=== PATIENT | male | born 1985 | race Hispanic/Latino ===

== ENCOUNTER 2017-02-17 15:39 | Observation (INO) | payer MEDICAID ==
[2017-02-17 15:39] VITALS: BMI 18.8
--- NOTE | 2017-02-17 16:31 | ED PDOC ---
HPI: Skin/Bite Injury Time Seen by Provider: 02/17/17 16:02 Chief Complaint (Nursing): Abnormal Skin Integrity Chief Complaint (Provider): Right Arm Infection History Per: Patient History/Exam Limitations: no limitations Onset/Duration Of Symptoms: Days (x4) Current Symptoms Are (Timing): Still Present Location Of Injury: Right: Arm (extending from mid-upper arm to hand) Quality Of Symptoms: Painful, Swollen, Draining (abscess right ventral forearm) Additional Complaint(s): Aj Pena is a 31 year old male, with a past medical history inclusive of IV drug abuse, who presents to the ED on 02/17/17 for the evaluation of a right arm infection which he believes is stemming from a currently draining abscess on his ventral forearm. Patient reports that abscess, first noted 4 days ago, had initially been small with only localized redness, but that he had been told that it still needed to come to a head yesterday morning when he had presented to the [place] ED for evaluation. Abscess did spontaneously rupture over the course of that day, prompting patient to return to the [place] ED where he had been given IV antibiotics after "lots" of purulent discharge had been expressed from the wound. No Rx for PO antibiotics given prior to discharge home. Since that time area of erythema has spread, now extending from his mid-upper arm to his hand, and has been accompanied by a subjective fever, chills, diffuse myalgias and increased soreness/pain to the entirety of his RUE. Denies weakness /numbness. Tetanus vaccination is up to date. Of note, patient has experienced abscesses in this area before, last being as of 3.5 weeks ago within the right antecubital. Patient had been incarcerated at that time and I&D had been performed without complications. PMD: none Past Medical History Reviewed: Historical Data, Nursing Documentation, Vital Signs Vital Signs: Last Vital Signs Temp 99.1 F 02/17/17 15:53 Pulse 121 H 02/17/17 15:53 Resp 16 02/17/17 15:53 BP 119/80 02/17/17 15:53 Pulse Ox 99 02/17/17 17:19 - Medical History PMH: No Chronic Diseases Denies: Depression - Surgical History Surgical History: No Surg Hx - Family History Family History: States: Diabetes - Social History Current smoker - smoking cessation education provided: Yes Alcohol: Social Drugs: Cocaine, Opiates (IV drug abuser) - Immunization History Hx Tetanus Toxoid Vaccination: No Hx Influenza Vaccination: No Hx Pneumococcal Vaccination: No - Allergies Allergies/Adverse Reactions: Allergies Allergy/AdvReac Type Severity Reaction Status Date / Time Penicillins Allergy URTICARIA Verified 10/04/16 12:13 Review of Systems ROS Statement: Except As Marked, All Systems Reviewed And Found Negative Constitutional: Positive for: Fever (subjective), Chills Musculoskeletal: Positive for: Arm Pain (RUE (soreness/pain)), Other (diffuse myalgias) Neurological: Negative for: Weakness, Numbness Physical Exam - Reviewed Nursing Documentation Reviewed: Yes Vital Signs Reviewed: Yes - Physical Exam Appears: Positive for: In Acute Distress (mild painful) Head Exam: Positive for: ATRAUMATIC, NORMOCEPHALIC Skin: Positive for: Normal Color, Warm, Dry Cardiovascular/Chest: Positive for: Tachycardia (regular rhythm). Negative for : Murmur Respiratory: Positive for: Normal Breath Sounds. Negative for: Respiratory Distress Pulses-Radial (R): 2+ Extremity: Positive for: Normal ROM (FROM of right hand/fingers), Capillary Refill (<2 seconds), Swelling (erythema extending from right hand up to mid- upper arm with edema/induration/warmth of the entire forearm; no fluctuance), Other (2.5cm circular lesion noted to anterior mid-forearm, open with black central eschar and expressing purulent discharge) Neurologic/Psych: Positive for: Alert, Oriented, Mood/Affect (anxious). Negative for: Motor/Sensory Deficits (light touch intact of all nerve distributions of RUE, 5/5 strength) - Laboratory Results Result Diagrams: 02/17/17 16:33 02/17/17 16:33 - ECG O2 Sat by Pulse Oximetry: 99 (RA) Pulse Ox Interpretation: Normal Medical Decision Making Medical Decision Makin:02 Initial Impression: abscess, cellulitis of RUE Patient will need hospitalization for rapid progression of cellulitis s/p spontaneous abscess drainage, concern for virulent bacteria (especially MRSA). Initial Plan: * Labs * Lactic Acid, Plasma * Blood Culture * Wound Culture * Levaquin 500mg IVPB * Vancomycin IVP * Toradol 15mg IVP * Reevaluation 16:45 Labs reviewed, elevated WBC count (15.0). Normal lactate. Discussed case with Dr. Mauro (Hospitalist), patient will be hospitalized overnight for both observation and further IV antibiotic administration. Plan has been discussed with patient, who is in agreement. Condition fair. Scribe Attestation: Documented by Maile Cortez, acting as a scribe for Kiley Brush MD. Provider Scribe Attestation: All medical record entries made by the Scribe were at my direction and personally dictated by me. I have reviewed the chart and agree that the record accurately reflects my personal performance of the history, physical exam, medical decision making, and the department course for this patient. I have also personally directed, reviewed, and agree with the discharge instructions and disposition. Disposition - Clinical Impression Clinical Impression: Cellulitis and abscess of upper arm and forearm - Patient ED Disposition Is Patient to be Admitted: Yes Counseled Patient/Family Regarding: Studies Performed, Diagnosis - Disposition Disposition Time: 16:45 Condition: FAIR - Pt Status Changed To: Hospital Disposition Of: Observation - POA Present On Arrival: None
[2017-02-17] MEDS ORDERED: Vancomycin 1 g Inj ONE (16:50)
[2017-02-17 17:01] LABS: BASO # 0.1 K/uL (0.0-0.2); BASO % 0.5 % (0.0-2.0); EOS # 0.2 K/uL (0.0-0.7); EOS % 1.4 % (0.0-4.0); HEMATOCRIT 34.9 % (35.0-51.0); LYMPH # 2.1 K/uL (1.0-4.3); MEAN CELL VOLUME 92.1 fl (80.0-94.0); MEAN CORPUSCULAR HEMOGLOBIN 28.6 pg (27.0-31.0); MEAN CORPUSCULAR HGB CONC 31.1 g/dL (33.0-37.0); MEAN PLATELET VOLUME 8.9 fl (7.2-11.7); MONO # 1.2 K/uL (0.0-0.8); MONO % 8.1 % (0.0-10.0); NEUT # 11.4 K/uL (1.8-7.0); RED CELL DISTRIBUTION WIDTH 16.3 % (11.5-14.5)
[2017-02-17 17:09] LABS: ALB/GLOB RATIO 1.1 (1.0-2.1); ALKALINE PHOSPHATASE 128 U/L (38-126); ALT/SGPT 147 U/L (21-72); AST/SGOT 85 U/L (17-59); BILIRUBIN,TOTAL 0.5 mg/dl (0.2-1.3); BLOOD UREA NITROGEN 16 mg/dl (9-20); CALCIUM 8.6 mg/dL (8.4-10.2); CARBON DIOXIDE 32 mmol/L (22-30); CHLORIDE 98 mmol/L (98-107); GFR AFRICAN-AMERICAN > 60; GLUCOSE,RANDOM 167 mg/dL (75-110); POTASSIUM 4.2 MMOL/L (3.6-5.0); SODIUM 137 mmol/l (132-148); TOTAL PROTEIN 6.6 G/DL (6.3-8.2)
--- NOTE | 2017-02-17 18:50 | RAD ---
HISTORY: admission COMPARISON: None available. TECHNIQUE: Chest PA and lateral FINDINGS: LUNGS: Right lateral chest wall/costophrenic angle excluded from view. No focal consolidation. Please note that chest x-ray has limited sensitivity for the detection of pulmonary masses. PLEURA: No significant pleural effusion identified. No definite pneumothorax . CARDIOVASCULAR: The cardiomediastinal silhouette appears within normal limits of size. OSSEOUS STRUCTURES: No acute osseous abnormality identified. VISUALIZED UPPER ABDOMEN: Unremarkable. OTHER FINDINGS: None. IMPRESSION: No focal consolidation, significant pleural effusion, or definite pneumothorax identified.
--- NOTE | 2017-02-17 19:00 | RAD ---
PROCEDURE: Radiographs of the right forearm. HISTORY: RIGHT arm infection h/o IVDA r/o FB COMPARISON: None available. TECHNIQUE: Frontal and lateral views obtained. FINDINGS: BONES: No acute displaced fracture. JOINT SPACES: No dislocation. OTHER FINDINGS: Subcutaneous bubbles of gas noted within the soft tissues, predominantly midforearm. No evidence of radiopaque foreign body. IMPRESSION: Subcutaneous bubbles of gas noted within the soft tissues, predominantly midforearm. Correlate clinically for cellulitis/ abscess or necrotizing fasciitis. No evidence of radiopaque foreign body. Findings discussed with Dr. Brush on 02/17/17 at 6:57 p.m.
--- NOTE | 2017-02-17 19:13 | CP.PCM.HP ---
History of Present Illness - History of Present Illness History of Present Illness: 31 year old male, with PMH of IVDA drug abuse came to ER with family for evaluation of right forearm infection . As per patient he noticed a small pimple on mid foraram lateral aspect, 4 days ago that became bigger in size with surrounding erythema and tenderness. Patient admits to injecting to antecubital area just above the wound 1 month ago and states that he did develop an abscess that was drained when he was in [facility] retirement He was seen in [place] ER yesterday and was treated with IV antibiotic and sent home without any Po antibiotics.During the night the abscess opened up and started draining large amount of purulent and faul smelling discharge. He noticed that erythema started to extend to his upper arm and down toward his hand with increased swelling and tenderness so decided to come to our ER for evaluation He also gives history of subjective fever, denies chills, nausea or vomiting. Allergies ; PCN PMH ; History IV drug abuse Medications; None Surgery : nOne Family history; none Social history ; just released from [facility] retirement , lives with ,IVETHAN ( uses heroine 80 bags/day and cocaine),smoker 1 ppd x 15 years, denies ETOH abuse ROS ; 14 point review of system negative except above Present on Admission - Present on Admission Any Indicators Present on Admission: No Review of Systems - Review of Systems All systems: reviewed and no additional remarkable complaints except Past Patient History - Infectious Disease Hx of Infectious Diseases: None - Tetanus Immunizations Tetanus Immunization: Unknown - Past Medical History & Family History Past Medical History?: No Past Family History: Reviewed and not pertinent - Past Social History Smoking Status: Heavy Smoker > 10 Cigarettes Daily Chewing Tobacco Use: No Cigar Use: No Alcohol: None Drugs: Cocaine, Other (heroine ) Home Situation {Lives}: With Family Domestic Violence: Negative - PSYCHIATRIC Hx Depression: No Hx Substance Use: Yes (heroin,on methadone treatment) - SURGICAL HISTORY Hx Surgeries: No Meds Allergies/Adverse Reactions: Allergies Allergy/AdvReac Type Severity Reaction Status Date / Time Penicillins Allergy URTICARIA Verified 10/04/16 12:13 Physical Exam - Constitutional Appears: Well, Non-toxic, No Acute Distress - Head Exam Head Exam: ATRAUMATIC, NORMAL INSPECTION, NORMOCEPHALIC - Eye Exam Eye Exam: EOMI, Normal appearance, PERRL Pupil Exam: NORMAL ACCOMODATION - ENT Exam ENT Exam: Mucous Membranes Moist, Normal Exam - Neck Exam Neck exam: Positive for: Full Rom, Normal Inspection - Respiratory Exam Respiratory Exam: Clear to Auscultation Bilateral, NORMAL BREATHING PATTERN. absent: Rales, Rhonchi, Wheezes - Cardiovascular Exam Cardiovascular Exam: REGULAR RHYTHM, RRR, +S1, +S2. absent: JVD - GI/Abdominal Exam GI & Abdominal Exam: Normal Bowel Sounds, Soft. absent: Distended, Guarding, Rebound, Tenderness - Rectal Exam Rectal Exam: Deferred - Extremities Exam Extremities exam: Positive for: normal capillary refill, normal inspection, pedal pulses present. Negative for: calf tenderness, pedal edema Additional comments: right mid forearam 2x 3 cm open wound with black escar and faul smelling purulent discharge erythema extending from mid upper arm to the hand with edema pulses inatact - Back Exam Back exam: NORMAL INSPECTION - Neurological Exam Neurological exam: Alert, CN II-XII Intact, Oriented x3, Reflexes Normal - Psychiatric Exam Psychiatric exam: Normal Affect, Normal Mood - Skin Skin Exam: Dry, Intact, Normal Color, Warm Results - Vital Signs Recent Vital Signs: Last Vital Signs Temp 99.1 F 02/17/17 15:53 Pulse 121 H 02/17/17 15:53 Resp 16 02/17/17 15:53 BP 119/80 02/17/17 15:53 Pulse Ox 99 02/17/17 17:19 - Labs Result Diagrams: 02/17/17 16:33 02/17/17 16:33 - Imaging and Cardiology forearm Xray Additional comment: Subcutaneous bubbles of gas noted within the soft tissues, predominantly midforearm. Correlate clinically for cellulitis/ abscess or necrotizing fasciitis. Assessment & Plan - Assessment and Plan (Free Text) Assessment: 31 year old male, with PMH of IVDA drug abuse came to ER with family for evaluation of right forearm infection . As per patient he noticed a small pimple on mid foraram lateral aspect, 4 days ago that became bigger in size with surrounding erythema and tenderness. Patient admits to injecting to antecubital area just above the wound 1 month ago and states that he did develop an abscess that was drained when he was in [facility] retirement He was seen in [place] ER yesterday and was treated with IV antibiotic and sent home without any Po antibiotics.During the night the abscess opened up and started draining large amount of purulent and faul smelling discharge. He noticed that erythema started to extend to his upper arm and down toward his hand with increased swelling and tenderness so decided to come to our ER for evaluation He also gives history of subjective fever, denies chills, nausea or vomiting. WBc elevated 15 K Tmax 99.1 1. Right Forearm abscess with cellulites in a IVDA patient Admit patient in med/surg Started levaquine and Vanco IV Wound cx, blood cx Will call ID consult and surgery for possible I& D pain management 2.h/o IVDA uses heroine ( 80 bags / day and cocaine ) has been incarcerated recently and had detox Will need detox in community once cleraed for discharge 3. Tobacco abuse disorder Nicorine patch 4.Transaminitis unclear etiology Send Hepatitis profile Patient states that was checked 3 weeks ago for HIV and hep C status and was negative 5. DVt prophylaxis early ambulation
[2017-02-17 23:11] VITALS: BP 107/66; PULSE 93; RESP 17; TEMP 98.5; O2SAT 98
--- NOTE | 2017-02-18 07:44 | CARD ---
APPROVED REPORT EKG Measurement Heart [id number] CT [id number] <Conclusion> Sinus tachycardia Rightward axis Borderline ECG
--- NOTE | 2017-02-18 12:13 | CP.PCM.CON ---
<Bryn Dos Santos - Last Filed: 02/18/17 13:20> History of Present Illness - History of Present Illness History of Present Illness: 31M w/ PMHx of intravenous drug abuse presented to the ED w/ complaints of right forearm redness/abscess formation. Pt reports he first noticed a small pimple like structure on his mid-lateral portion of right forearm. Pt states area became bigger in size and region became erythematous and tender, patient mentioned it was painful making wrist movements. Reports that due to his IV drug use habits he has had this issue occur multiple times. Patient was seen in [place] ED, as per patient he was treated with IV abx and d/c w/o any oral abx. Currently abscess is spontaneously draining, as per nursing wound cultures were taken. At time of interview patient was being extremely demanding and rude to hospital staff. Patient threatening to leave AMA. Patient stated "I need my fix , I can't be here all day!". The wound area was purulent with a thin superficial region of necrotic tissue measuring approximately [id number] which was excised at bedside. Pus was irrigated with normal saline. Wound was debrided and cleaned off at bedside. Healthy pink based was exposed and packed. Wound area was dressed and is not c/d/i. After I&D was done patient stated he was not going to wait for any antibiotics and was threatening to sign out AMA. Benefits vs Risks were thoroughly explained to the patient and he responded "I know, I don't care, I'm not waiting for anything else, I'm gone". PMHx: as stated above Allergies: Penicillins PSurgHx:denies Review of Systems - Constitutional Constitutional: Fever Additional comments: subjective - Cardiovascular Cardiovascular: absent: Chest Pain, Chest Pain at Rest - Respiratory Respiratory: absent: Cough, Wheezing Additional comments: denies SOB - Gastrointestinal Gastrointestinal: absent: Abdominal Pain - Musculoskeletal Musculoskeletal: absent: Back Pain - Integumentary Integumentary: Wounds. absent: Jaundice Additional comments: Abscess spontaenously draining from right mid lateral forearm - Neurological Neurological: absent: Disequilibrium, Dizziness - Psychiatric Additional comments: Irritated Past Patient History - Infectious Disease Hx of Infectious Diseases: None - Tetanus Immunizations Tetanus Immunization: Unknown - Past Medical History & Family History Past Medical History?: No - Past Social History Smoking Status: Heavy Smoker > 10 Cigarettes Daily - HEMATOLOGICAL/ONCOLOGICAL Hx AIDS: No Hx Human Immunodeficiency Virus (HIV): No (HIV rapid drawn, nonreactive) - MUSCULOSKELETAL/RHEUMATOLOGICAL Hx Falls: No - PSYCHIATRIC Hx Depression: No Hx Substance Use: Yes (heroin,on methadone treatment) - SURGICAL HISTORY Hx Surgeries: No - ANESTHESIA Hx Anesthesia: No Hx Anesthesia Reactions: No Hx Malignant Hyperthermia: No Has any member of the family had a problem w/ anesthesia?: No Meds Allergies/Adverse Reactions: Allergies Allergy/AdvReac Type Severity Reaction Status Date / Time Penicillins Allergy URTICARIA Verified 10/04/16 12:13 - Medications Medications: Current Medications Acetaminophen (Tylenol 325mg Tab) 650 mg PO Q6 PRN PRN Reason: Pain, Mild (1-3) Levofloxacin/Dextrose (Levaquin 750mg) 150 mls @ 100 mls/hr IVPB DAILY [facility] Vancomycin HCl 1 gm/ Sodium (Chloride) 250 mls @ 166.667 mls/hr IVPB DAILY [facility] Last Admin: 02/18/17 09:33 Dose: 166.667 mls/hr Ibuprofen (Motrin Tab) 400 mg PO Q6 PRN PRN Reason: Fever >100.4 F Ketorolac Tromethamine (Toradol) 30 mg IVP Q6 PRN PRN Reason: Pain, severe (8-10) Last Admin: 02/18/17 09:37 Dose: 30 mg Nicotine (Nicoderm Cq) 1 patch TD DAILY [facility] Last Admin: 02/18/17 11:31 Dose: Not Given Ondansetron HCl (Zofran Inj) 4 mg IVP Q6 PRN PRN Reason: Nausea/Vomiting Physical Exam - Constitutional Appears: Non-toxic, Agitated - Head Exam Head Exam: NORMOCEPHALIC - Eye Exam Eye Exam: Normal appearance - ENT Exam ENT Exam: Mucous Membranes Moist - Cardiovascular Exam Cardiovascular Exam: +S1, +S2 - GI/Abdominal Exam GI & Abdominal Exam: Soft - Extremities Exam Additional comments: Abscess in right mid lateral forearm; spontaneously draining - Neurological Exam Neurological exam: Alert, Oriented x3 - Skin Skin Exam: Erythema Results - Vital Signs Recent Vital Signs: Last Vital Signs Temp 98.5 F 02/17/17 21:00 Pulse 93 H 02/17/17 21:00 Resp 17 02/17/17 21:00 BP 107/66 02/17/17 21:00 Pulse Ox 98 02/17/17 21:00 - Labs Result Diagrams: 02/17/17 16:33 02/17/17 16:33 Labs: Laboratory Results - last 24 hr 02/17/17 21:30 Hepatitis A IgM Ab Negative Hep Bs Antigen Negative Hep B Core IgM Ab Negative HIV-1 Ab Rapid Screen Non reactive Assessment & Plan - Assessment and Plan (Free Text) Assessment: 31M IV drug user w/ spontaneously draining right mid-lateral forearm abscess -ABx per ID -Packing changes daily -D/w Dr. Becerril <Jaiden Becerril - Last Filed: 02/18/17 18:20> Results - Vital Signs Recent Vital Signs: Last Vital Signs Temp 98.5 F 02/17/17 21:00 Pulse 93 H 02/17/17 21:00 Resp 17 02/17/17 21:00 BP 107/66 02/17/17 21:00 Pulse Ox 98 02/17/17 21:00 - Labs Result Diagrams: 02/17/17 16:33 02/17/17 16:33 Labs: Laboratory Results - last 24 hr 02/17/17 21:30 Hepatitis A IgM Ab Negative Hep Bs Antigen Negative Hep B Core IgM Ab Negative Hepatitis C Antibody Reactive H HIV-1 Ab Rapid Screen Non reactive Attending/Attestation - Attestation I have personally seen and examined this patient.: Yes I have fully participated in the care of the patient.: Yes I have reviewed all pertinent clinical information: Yes Notes (Text): 02/18/17 18:19 Pt was seen and examined at bedside on 02/18/17 Agree with above note and assessment. Pt with abscess of Right forearm I & D at bedside Consent Plan d.w pt in detail Risk and benefit explained in detail.
--- NOTE | 2017-02-18 12:16 | CP.PCM.DIS ---
Provider - Provider Date of Admission: 02/17/17 17:16 Attending physician: Nancy Mauro MD Consults: surgery Time Spent in preparation of Discharge (in minutes): 20 Hospital Course - Lab Results Lab Results: Most Recent Lab Values WBC 15.0 K/uL (4.8-10.8) H 02/17/17 16:33 RBC 3.79 Mil/uL (4.40-5.90) L 02/17/17 16:33 Hgb 10.8 g/dL (12.0-18.0) L 02/17/17 16:33 Hct 34.9 % (35.0-51.0) L 02/17/17 16:33 MCV 92.1 fl (80.0-94.0) 02/17/17 16:33 MCH 28.6 pg (27.0-31.0) 02/17/17 16:33 MCHC 31.1 g/dL (33.0-37.0) L 02/17/17 16:33 RDW 16.3 % (11.5-14.5) H 02/17/17 16:33 Plt Count 209 K/uL (130-400) 02/17/17 16:33 MPV 8.9 fl (7.2-11.7) 02/17/17 16:33 Neut % (Auto) 76.0 % (50.0-75.0) H 02/17/17 16:33 Lymph % (Auto) 14.0 % (20.0-40.0) L 02/17/17 16:33 [place] % (Auto) 8.1 % (0.0-10.0) 02/17/17 16:33 Eos % (Auto) 1.4 % (0.0-4.0) 02/17/17 16:33 Baso % (Auto) 0.5 % (0.0-2.0) 02/17/17 16:33 Neut # 11.4 K/uL (1.8-7.0) H 02/17/17 16:33 Lymph # 2.1 K/uL (1.0-4.3) 02/17/17 16:33 [place] # 1.2 K/uL (0.0-0.8) H 02/17/17 16:33 Eos # 0.2 K/uL (0.0-0.7) 02/17/17 16:33 Baso # 0.1 K/uL (0.0-0.2) 02/17/17 16:33 Sodium 137 mmol/l (132-148) 02/17/17 16:33 Potassium 4.2 MMOL/L (3.6-5.0) 02/17/17 16:33 Chloride 98 mmol/L (98-107) 02/17/17 16:33 Carbon Dioxide 32 mmol/L (22-30) H 02/17/17 16:33 Anion Gap 11 (10-20) 02/17/17 16:33 BUN 16 mg/dl (9-20) 02/17/17 16:33 Creatinine 0.7 mg/dL (0.8-1.5) L 02/17/17 16:33 Est GFR ( Amer) > 60 02/17/17 16:33 Est GFR (Non-Af Amer) > 60 02/17/17 16:33 Random Glucose 167 mg/dL (75-110) H 02/17/17 16:33 Lactic Acid 2.1 MMOL/L (0.7-2.1) 02/17/17 16:30 Calcium 8.6 mg/dL (8.4-10.2) 02/17/17 16:33 Total Bilirubin 0.5 mg/dl (0.2-1.3) 02/17/17 16:33 AST 85 U/L (17-59) H 02/17/17 16:33 ALT 147 U/L (21-72) H 02/17/17 16:33 Alkaline Phosphatase 128 U/L (38-126) H 02/17/17 16:33 Total Protein 6.6 G/DL (6.3-8.2) 02/17/17 16:33 Albumin 3.4 g/dL (3.5-5.0) L 02/17/17 16:33 Globulin 3.2 gm/dL (2.2-3.9) 02/17/17 16:33 Albumin/Globulin Ratio 1.1 (1.0-2.1) 02/17/17 16:33 Hepatitis A IgM Ab Negative (NEGATIVE) 02/17/17 21:30 Hep Bs Antigen Negative (NEGATIVE) 02/17/17 21:30 Hep B Core IgM Ab Negative (NEGATIVE) 02/17/17 21:30 HIV-1 Ab Rapid Screen Non reactive (NON REAC) 02/17/17 21:30 - Hospital Course Hospital Course: 31 year old male, with PMH of IVDA drug abuse came to ER with family for evaluation of right forearm infection on 02/17/17 . As per patient he noticed a small pimple on mid foraram lateral aspect, 4 days prior to presentation, that became bigger in size with surrounding erythema and tenderness. Patient admits to injecting to antecubital area just above the wound 1 month ago and states that he did develop an abscess that was drained when he was in [facility] He was seen in [place] ER yesterday and was treated with IV antibiotic and sent home without any Po antibiotics.During the night the abscess opened up and started draining large amount of purulent and faul smelling discharge. He noticed that erythema started to extend to his upper arm and down toward his hand with increased swelling and tenderness so decided to come to our ER for evaluation on 02/17/17. Patient underwent I&D of the Right Forearm this morning and then was refusing antibiotics initially and blood work. He then informed Nurse Lizbeth that he was going to sign himself out AMA. Nurse Lizbeth as well as international affairs vice president explained to patient the dangers to his health of doing this. It was also explained to him that he needed to be evaluated by Infectious Disease specialist. Despite this, after receiving Vancomycing IV, patient signed AMA and by the time I came up to evaluate him, he had already left. Cristino Ervin D.O. Discharge Exam - Head Exam Head Exam: ATRAUMATIC, NORMAL INSPECTION, NORMOCEPHALIC Discharge Plan - Follow Up Plan Condition: FAIR Disposition: HOME/ ROUTINE Instructions: Cellulitis (DC), Abscess (GEN) Additional Instructions: Signed AMA - made aware of medical risks taken
--- NOTE | 2017-02-19 04:30 | OP ---
PROCEDURE DATE: 02/18/2017 PREOPERATIVE DIAGNOSIS: Left forearm abscess. POSTOPERATIVE DIAGNOSIS: Left forearm abscess. PROCEDURE DONE: 1. Incision and drainage of left forearm abscess. 2. Debridement of the wound. SURGEON: Jaiden Becerril MD [employer]CR[employer]E [employer] PUMP OPERATOR: Bryn Dos Santos, PGY-2 resident. ANESTHESIA: Local anesthesia. ESTIMATED BLOOD LOSS: Around 5 mL. DRAINS: None. PATHOLOGY: Pus was sent for culture and sensitivity. COMPLICATIONS: None. INTRAOPERATIVE FINDINGS: The patient had a left forearm abscess. INTRAOPERATIVE STEPS: This is a 31-year-old male, was diagnosed with a left forearm abscess and the patient was consented for incision and drainage. The patient was placed supine on the patient bed an d the left forearm was prepped and draped. Local anesthesia was injected and incision and drainage o f the left forearm abscess was done. Wound was debrided. The wound was irrigated and hemostasis was achieved and the wound was packed with iodoform packing and dry sterile dressing was applied. The p atient tolerated the procedure well. Count of instruments and gauze was correct. There was no appar ent complication. Jaiden Becerril MD cc: [id number] TT: 02/19/2017 04:30:01 sheila
== END 2017-02-18 12:15 | disposition left against medical advice (07) ==
LOC: H.ER 15:39 → H.ERHOLD 17:16 → H.MEDSURG1 21:27
PROVIDERS: ADMIT Hospitalist; ATTEND Hospitalist
DX: L02.413 Cutaneous abscess of right upper limb (principal); Z88.0 Allergy status to penicillin; Z72.0 Tobacco use; F14.10 Cocaine abuse, uncomplicated; F11.10 Opioid abuse, uncomplicated; R74.0 Nonspecific elevation of levels of transaminase and lactic acid dehydrogenase [LDH]
CPT/HCPCS: 71020; 73090; 80053; 80074; 83605; 85025; 87040; 87070; 87390; 93005; 96374; 99282; G0378; J1885